=== PATIENT | male | born 1995 | race Caucasian/White ===

== ENCOUNTER 2019-06-18 20:02 | Emergency (ER) | payer BC, SELFPAY ==
[2019-06-18] MEDS ORDERED: Ibuprofen 800 MG TAB ONE (20:14)
== END 2019-06-18 21:10 | disposition home or self-care (01) ==
LOC: NAV ERS 20:02
DX: J11.1 Influenza due to unidentified influenza virus with other respiratory manifestations (principal); K21.9 Gastro-esophageal reflux disease without esophagitis
CPT/HCPCS: 87804; 99283